=== PATIENT | male | born 1965 ===

== ENCOUNTER 2018-12-31 17:01 | Emergency (ER) | payer SELFPAY ==
[~2018-12-31] VITALS: Ht 177.8 cm; Wt 91.8 kg
[2018-12-31] MEDS ORDERED: methylPREDNISolone sod succ 125mg/2ml vial IV ONE (17:45)
[2018-12-31] MEDS ORDERED: ipratropium/albuterol 3ml nebule NEB ONE (17:45)
[2018-12-31] MEDS ORDERED: normal saline 1000ML IV soln IVB ONE (17:45)
--- NOTE | 2018-12-31 18:05 | NUR ---
pt to xray.
[2018-12-31] MEDS ORDERED: ALBU6.7H INH (18:37)
[2018-12-31] MEDS ORDERED: PRED20TA PO (18:37)
[2018-12-31 19:02] VITALS: BP 135/90
== END 2018-12-31 19:04 | disposition home or self-care (01) ==
LOC: ER 17:02
DX: T59.4X1A Toxic effect of chlorine gas, accidental (unintentional), initial encounter (principal); J68.3 Other acute and subacute respiratory conditions due to chemicals, gases, fumes and vapors; I10 Essential (primary) hypertension; F17.210 Nicotine dependence, cigarettes, uncomplicated; Z79.899 Other long term (current) drug therapy; Y92.89 Other specified places as the place of occurrence of the external cause
CPT/HCPCS: 71046; 94640; 94760; 96374; 99283; J2930; J7030